=== PATIENT | male | born 1940 | race Two or more races ===

== ENCOUNTER 2025-03-03 08:34 | Outpatient (CLI) | payer OTHER | END 2025-03-03 08:41 | disposition home or self-care (01) | LOC: SONOGRAMA 08:34 | PROVIDERS: ATTEND Internal Medicine | DX: R59.1 Generalized enlarged lymph nodes (principal) ==

== ENCOUNTER 2025-07-18 07:33 | Outpatient (CLI) | payer OTHER ==
[2025-07-18 08:35] LABS: BASO % 0.9 % (0.1-1.2); EOS # 0.12 (0.04-0.54); EOS % 2.7 % (0.7-7.0); LYMPH # 1.28 (1.18-3.74); LYMPH % 28.3 % (19.3-53.1); MEAN PLATELET VOLUME 8.50 fl (9.4-12.4); MONO # 0.41 (0.24-0.82); MONO % 9.1 % (4.7-12.5); NEUT # 2.66 (1.56-6.13); NEUT % 58.8 % (34.0-71.1); RED CELL DISTRIBUTION WIDTH 12.5 % (11.6-14.4)
[2025-07-18 09:15] LABS: % SATURACION 35.7 % (20-50); ALT/SGPT 48.0 U/L (12-78); AST/SGOT 17.0 U/L (15-37); BILIRUBIN TOTAL 0.54 mg/dL (0.3-1.2); BUN CREA RATIO 15.0 (7.0-25.0); CREATININE SERUM 0.92 mg/dL (0.70-1.30); FE 121.0 ug/dl (65-175); GFR 78.57; GLOBULINA 3.3 G/DL (2.4-3.5); GLUCOSE FASTING 151.0 mg/dL (65-100); LDH 112.0 U/L (87-241); OSMOLALITY SERUM 283.0 MOSM/KG (275-295)
[2025-07-18 09:16] LABS: PROSTATIC SPECIFIC ANTIGEN 9.03 NG/ML (0.010-4.00)
[2025-07-18 10:36] LABS: FOLIC ACID > 20.00 ng/ml (4.78-20); VITAMIN D3 25 HYDROXY 54.35 ng/ml (30-120)
[2025-07-19 10:07] LABS: CA 125 8.3 U/mL (Not Estab.); CA 19-9 47.0 U/mL (0-35)
== END 2025-07-18 07:41 | disposition home or self-care (01) ==
LOC: LAB 07:33
DX: R59.0 Localized enlarged lymph nodes (principal); E11.9 Type 2 diabetes mellitus without complications; E78.2 Mixed hyperlipidemia; N40.1 Benign prostatic hyperplasia with lower urinary tract symptoms; D50.8 Other iron deficiency anemias; I10 Essential (primary) hypertension; R74.02 Elevation of levels of lactic acid dehydrogenase [LDH]; K76.89 Other specified diseases of liver; R79.9 Abnormal finding of blood chemistry, unspecified; R97.0 Elevated carcinoembryonic antigen [CEA]